=== PATIENT | female | born 1975 | race Caucasian/White ===

== ENCOUNTER 2019-10-30 21:08 | Emergency (ER) | payer BC ==
[2019-10-30] MEDS ORDERED: LORazepam 0.5 MG Tab PO ONE (21:55)
--- NOTE | 2019-10-30 22:01 | EDM.PDOC ---
ED HPI GENERAL MEDICAL PROBLEM - General Chief Complaint: Cardiovascular Problem Stated Complaint: HEART PAIN/RACING GETTING WORSE Time Seen by Provider: 10/30/19 21:19 Source of Information: Reports: Patient, RN Notes Reviewed - History of Present Illness INITIAL COMMENTS - FREE TEXT/NARRATIVE: 44 yr old female that comes in with palpitations that have been off and on for 4 to 5 days worse today. She has not been ill in any way. She has chronic back discomfort from scoliosis, chronic anterior chest discomfort from costochondritis. She has not been sleeping well the last few night stressed out about the palpitations. No nausea or vomiting. Not coughing or short of breath. No hx of heart or lung disease. She stopped all caffiene about 4 months ago. 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 (See Below) Other BOTTOM CEMENTER History: left ovary and fallopian tube removed Endocrine/Metabolic History: Reports: Diabetes, Type II - Past Surgical History GI Surgical History: Reports: Cholecystectomy Female Surgical History: Reports: Hysterectomy, Other (See Below) Other Female Surgeries/Procedures: left kidney removed Social & Family History - Tobacco Use Smoking Status *Q: Never Smoker Second Hand Smoke Exposure: No - Caffeine Use Caffeine Use: Reports: None - Recreational Drug Use Recreational Drug Use: No ED ROS GENERAL - Review of Systems Review Of Systems: See Below Constitutional: Denies: Fever, Chills, Diaphoresis HEENT: Denies: Throat Pain Respiratory: Denies: Shortness of Breath, Wheezing, Pleuritic Chest Pain, Cough Cardiovascular: Reports: Chest Pain, Palpitations GI/Abdominal: Denies: Abdominal Pain, Nausea, Vomiting Musculoskeletal: Reports: Back Pain. Denies: Shoulder Pain, Arm Pain Skin: Reports: No Symptoms Neurological: Reports: No Symptoms ED EXAM, GENERAL - Physical Exam Exam: See Below General Appearance: Alert, Anxious Throat/Mouth: Normal Inspection Neck: Supple Respiratory/Chest: No Respiratory Distress, Lungs Clear, Normal Breath Sounds, Other (tender L sternal border) Cardiovascular: Regular Rate, Rhythm GI/Abdominal: Soft, Tender (mild tenderness upper mid abd, otherwise nontender) Extremities: Normal Inspection, Normal Range of Motion. No: Pedal Edema, Leg Pain Neurological: Alert, Oriented, No Motor/Sensory Deficits Skin Exam: Warm, Dry, Normal Color EKG INTERPRETATION EKG Date: 10/30/19 Rhythm: Other (ventricular bigeminy) P-Wave: Present QRS: Other (PVC's wide complex, qrs of normal beats slightly wide) ST-T: Other (no acute st changes) Course - Vital Signs Last Recorded V/S: Last Vital Signs Temp 97.7 F 10/30/19 21:15 Pulse 86 10/30/19 21:15 Resp 16 10/30/19 21:15 BP 162/105 H 10/30/19 21:15 Pulse Ox 100 10/30/19 21:15 - Orders/Labs/Meds Orders: Active Orders 24 hr Category Date Time Status EKG 12 Lead [EKG Documentation Completion] [RC] STAT Care 10/30/19 21:39 Active Chest 1V Frontal [CR] Stat Exams 10/30/19 21:38 Taken Labs: Laboratory Tests 10/30/19 10/30/19 Range/Units 21:30 21:30 WBC 8.92 (3.98-10.04) K/mm3 RBC 4.71 (3.98-5.22) M/mm3 Hgb 13.9 (11.2-15.7) gm/dl Hct 43.5 (34.1-44.9) % MCV 92.4 (79.4-94.8) fl MCH 29.5 (25.6-32.2) pg MCHC 32.0 L (32.2-35.5) g/dl RDW Std Deviation 46.1 (36.4-46.3) fL Plt Count 343 (182-369) K/mm3 MPV 10.4 (9.4-12.3) fl Neut % (Auto) 52.9 (34.0-71.1) % Lymph % (Auto) 34.8 (19.3-51.7) % Johnson % (Auto) 7.3 (4.7-12.5) % Eos % (Auto) 4.1 (0.7-5.8) Baso % (Auto) 0.6 (0.1-1.2) % Neut # (Auto) 4.72 (1.56-6.13) K/mm3 Lymph # (Auto) 3.10 (1.18-3.74) K/mm3 Johnson # (Auto) 0.65 H (0.24-0.36) K/mm3 Eos # (Auto) 0.37 H (0.04-0.36) K/mm3 Baso # (Auto) 0.05 (0.01-0.08) K/mm3 Sodium 141 (136-145) mEq/L Potassium 3.7 (3.5-5.1) mEq/L Chloride 104 (98-107) mEq/L Carbon Dioxide 29 (21-32) mEq/L Anion Gap 11.7 (5-15) BUN 14 (7-18) mg/dL Creatinine 0.8 (0.55-1.02) mg/dL Est Cr Clr Drug Dosing 63.79 mL/min Estimated GFR (MDRD) > 60 (>60) mL/min BUN/Creatinine Ratio 17.5 (14-18) Glucose 280 H (74-106) mg/dL Calcium 9.0 (8.5-10.1) mg/dL Magnesium 1.5 L (1.8-2.4) mg/dl Total Bilirubin 0.4 (0.2-1.0) mg/dL AST 31 (15-37) U/L ALT 43 (14-59) U/L Alkaline Phosphatase 105 (46-116) U/L Total Protein 7.5 (6.4-8.2) g/dl Albumin 3.7 (3.4-5.0) g/dl Globulin 3.8 gm/dL Albumin/Globulin Ratio 1.0 (1-2) Meds: Medications Discontinued Medications Generic Name Dose Route Start Last Admin Trade Name Freq PRN Reason Stop Dose Admin Lorazepam 0.5 mg 10/30/19 21:55 10/30/19 22:02 Ativan PO 10/30/19 21:56 0.5 mg ONETIME ONE Administration Magnesium Oxide 400 mg 10/30/19 22:09 10/30/19 22:19 Magnesium Oxide PO 10/30/19 22:10 400 mg ONETIME ONE Administration - Re-Assessments/Exams Free Text/Narrative Re-Assessment/Exam: 10/30/19 22:04 EKG showed ventricular bigeminy. at the time of my exam a short time ago sinus rythm, very occasional PVC's at a rate of about 6 per minute. Pt somewhat anxious concerned about uncomfortable feeling when palpitations present. As noted in hx this has been off and on for about 4 to 5 days. When not present her chest feels fine, back to baseline. She did start taking a zinc supplement twice daily about 6 days ago. She did stop that today. 10/30/19 22:11. CBC nl. glucose is elevated at 280, magnesium low at 1.5. Had previously ordered ativan 0.5 mg PO, have now ordered oral mag 400 mg. 10/30/19 22:32. continues to have sinus rythm with occasional PVC's alternating with further bigeminy but less frequent from arrival. Discharge instr. as documented. Departure - Departure Time of Disposition: 22:30 Disposition: Home, Self-Care 01 Condition: Fair Clinical Impression: Heart palpitations, Hyperglycemia, Hypomagnesemia, PVCs (premature ventricular contractions) Referrals: Yudith Sommer PA-C [Primary Care Provider] - Forms: ED Department Discharge Additional Instructions: The palpitations you have been noticing the last 4 days are due to some of your heart beats coming earlier than usual which can be very uncomfortable. That is not a danger for you or your heart and the expectation is that they will become less frequent and go away. Your blood sugar was elevated higher than expected this evening at 280 realizing that you have eaten just a short time ago. Your serum magnesium was low at 1.5 with normal range of 1.8 to 2.4. Do not take any more of the zinc supplement. Start a magnesium supplement twice daily at recomended dosage, not more than 400 mg twice daily. Eat regular meals and snacks. Try limit your carbohydrate intake for now other than fruit and vegetables. Drink plenty of water to maintain hydration. Call clinic in AM for appointment to see Yudith later this week. Ask to have fasting glucose checked prior to appointment and also have your magnesium rechecked. Return to ED as needed if symptoms worsening in any way. Sepsis Event Note - Evaluation Sepsis Screening Result: No Definite Risk - Focused Exam Vital Signs: Vital Signs Temp Pulse Resp BP Pulse Ox 10/30/19 21:15 97.7 F 86 16 162/105 H 100 Date Exam was Performed: 10/30/19 Time Exam was Performed: 22:32 - My Orders Last 24 Hours: My Active Orders 10/30/19 21:38 Chest 1V Frontal [CR] Stat 10/30/19 21:39 EKG 12 Lead [EKG Documentation Completion] [RC] STAT - Assessment/Plan Last 24 Hours: My Active Orders 10/30/19 21:38 Chest 1V Frontal [CR] Stat 10/30/19 21:39 EKG 12 Lead [EKG Documentation Completion] [RC] STAT
[2019-10-30] MEDS ORDERED: Magnesium Oxide 400 MG Tab PO ONE (22:09)
--- NOTE | 2019-10-31 06:04 | CR ---
Chest: Portable view of the chest was obtained. Heart size and mediastinum are normal. Lungs are clear with no acute parenchymal change. Minimal scoliosis is present within the spine. Numerous surgical clips are seen within the abdomen. Impression: 1. Nothing acute is seen on portable chest x-ray. Diagnostic code #2 This report was dictated in MDT
== END 2019-10-30 22:41 | disposition home or self-care (01) ==
LOC: JD.ED 21:08
DX: I49.3 Ventricular premature depolarization (principal); E11.65 Type 2 diabetes mellitus with hyperglycemia; E83.42 Hypomagnesemia; Z79.899 Other long term (current) drug therapy
CPT/HCPCS: 36415; 71045; 80053; 83735; 85025; 93005; 99285; A9270; 93010; 99284